=== PATIENT | male | born 1995 | race Caucasian/White ===

== ENCOUNTER 2023-05-20 16:40 | Inpatient (IN) | payer OTHER ==
[~2023-05-20] VITALS: Ht 165.1 cm; Wt 85.9 kg
[2023-05-20 17:30] LABS: HEMATOCRIT 46.4 % (42.0-52.0); HEMOGLOBIN 16.2 g/dl (13.5-17.5); MEAN CORPUSCULAR HEMOGLOBIN 30.2 pg (27.0-33.0); MEAN CORPUSCULAR HGB CONC 34.9 g/dl (32.0-36.5); MEAN CORPUSCULAR VOLUME 86.6 fl (80.0-96.0); PLATELET COUNT, AUTOMATED 319 10^3/uL (150-450); RED BLOOD COUNT 5.36 10^6/uL (4.30-6.10); WHITE BLOOD COUNT 6.1 10^3/uL (4.0-10.0)
[2023-05-20 17:38] LABS: AMPHETAMINES LEVEL URINE NEGATIVE (NEGATIVE); BARBITURATES URINE NEGATIVE (NEGATIVE); BENZODIAZEPINES URINE NEGATIVE (NEGATIVE); CANNABINOIDS URINE NEGATIVE (NEGATIVE); COCAINE METABOLITE URINE NEGATIVE (NEGATIVE); METHADONE URINE NEGATIVE (NEGATIVE); OPIATES URINE NEGATIVE (NEGATIVE); PHENCYCLIDINE URINE NEGATIVE (NEGATIVE)
[2023-05-20 17:40] LABS: ETHYL ALCOHOL (ETHANOL) 0.278 % (0.000-0.010)
[2023-05-20 17:41] LABS: ALBUMIN 4.1 G/DL (3.2-5.2); ALKALINE PHOSPHATASE 80 U/L (46-116); ALT/SGPT 104 U/L (7.0-40); AST/SGOT 57 U/L (<34); BILIRUBIN,DIRECT < 0.1 MG/DL (<0.4); BILIRUBIN,TOTAL 0.2 MG/DL (0.3-1.2); BLOOD UREA NITROGEN 12 MG/DL (9-23); CALCIUM LEVEL 9.1 MG/DL (8.5-10.1); CARBON DIOXIDE LEVEL 26 MMOL/L (20-31); CHLORIDE LEVEL 111 MMOL/L (98-107); GLOMERULAR FILTRATION RATE > 60.0 (>60); GLUCOSE, FASTING 120 MG/DL (60-100); POTASSIUM SERUM 3.9 MMOL/L (3.5-5.1); SALICYLATE LEVEL < 3.0 MG/DL (<30); SODIUM LEVEL 145 MMOL/L (136-145); TOTAL PROTEIN 7.3 G/DL (5.7-8.2)
[2023-05-20 17:43] LABS: THYROID STIMULATING HORMONE 0.696 uIU/ML (0.55-4.78)
[2023-05-20] MEDS: FOLIC ACID 1MG TAB PO SCH (18:49)
[2023-05-20] MEDS: MULTIVITAMINS/MINERALS THERAP 1 TAB PO SCH (18:49)
[2023-05-20] MEDS: THIAMINE 100 MG TAB PO SCH (21:00)
[2023-05-20] MEDS: LORazepam 2 MG TAB PO PRN (22:30)
[2023-05-21] MEDS ORDERED: IBUPROFEN 400MG TAB PO PRN (06:50)
[2023-05-21] MEDS ORDERED: MAALOX 30 ML SUSP *UDC PO PRN (06:50)
[2023-05-21] MEDS ORDERED: MOM 30ML SUSPENSION UDC PO PRN (06:50)
[2023-05-21] MEDS ORDERED: diphenhydrAMINE 25MG CAP PO PRN (06:50)
[2023-05-21] MEDS ORDERED: MED REC IN PROGRESS XX SCH (06:55)
[2023-05-21 08:37] VITALS: BP 130/82; TEMP 99.3; O2SAT 98
[2023-05-21] MEDS: NICOTINE 21MG/24HR 1 EA TRANSDERMAL TD SCH (18:51)
[2023-05-21] MEDS: traZODone 50 MG TAB PO PRN (20:28)
[2023-05-21] MEDS: ACETAMINOPHEN TAB 650MG DOSE (2X325MG) PO PRN (20:29)
[2023-05-22 06:11] VITALS: BP 121/58; TEMP 97.4; O2SAT 98
[2023-05-22] MEDS ORDERED: HOME MED LIST COMPLETE! XX SCH (08:05)
[2023-05-22] MEDS ORDERED: ACET-907 PO (08:05)
[2023-05-22] MEDS ORDERED: NAPR-885 PO (08:05)
[2023-05-22] MEDS ORDERED: CYCL-707 PO (08:05)
[2023-05-22] MEDS ORDERED: TRAZ-252 PO (09:51)
[2023-05-22] MEDS ORDERED: NICO21PAT TD (09:51)
== END 2023-05-22 13:30 | disposition home or self-care (01) | DRG 882 ==
LOC: M ED 16:40 → M ED INP 05-21 06:46 → M PSY 05-21 08:48
PROVIDERS: ADMIT Student in an Organized Health Care Education/Training Program; ATTEND Student in an Organized Health Care Education/Training Program
DX: F43.20 Adjustment disorder, unspecified (principal); R45.851 Suicidal ideations; Z91.148 Patient's other noncompliance with medication regimen for other reason; F17.200 Nicotine dependence, unspecified, uncomplicated

== ENCOUNTER 2023-06-02 18:19 | Emergency (ER) | payer OTHER ==
[~2023-06-02] VITALS: Ht 165.1 cm; Wt 86.3 kg
[~2023-06-02 18:19] MED LIST: ACET-907 PO; CYCL-707 PO; NAPR-885 PO; NICO21PAT TD; TRAZ-252 PO
[2023-06-02] MEDS: diphenhydrAMINE 50MG/ML VIAL IM ONE (18:31)
[2023-06-02] MEDS: HALOPERIDOL 5MG/ML 1ML VIAL IM ONE (18:31)
[2023-06-02] MEDS: LORazepam 2 MG/ML 1ML VIAL IM ONE (18:32)
[2023-06-02 18:45] LABS: HEMATOCRIT 49.4 % (42.0-52.0); HEMOGLOBIN 17.3 g/dl (13.5-17.5); MEAN CORPUSCULAR HEMOGLOBIN 30.3 pg (27.0-33.0); MEAN CORPUSCULAR VOLUME 86.5 fl (80.0-96.0); PLATELET COUNT, AUTOMATED 372 10^3/uL (150-450); RED BLOOD COUNT 5.71 10^6/uL (4.30-6.10); WHITE BLOOD COUNT 9.4 10^3/uL (4.0-10.0)
[2023-06-02] MEDS ORDERED: HOME MED LIST COMPLETE! XX SCH (19:05)
[2023-06-02] MEDS: NS 1,000 ML IV ONE ×2 (19:06→22:19)
[2023-06-02 19:10] LABS: ALBUMIN 4.5 G/DL (3.2-5.2); ALKALINE PHOSPHATASE 88 U/L (46-116); ALT/SGPT 100 U/L (7.0-40); AST/SGOT 56 U/L (<34); BILIRUBIN,DIRECT 0.1 MG/DL (<0.4); BILIRUBIN,TOTAL 0.3 MG/DL (0.3-1.2); BLOOD UREA NITROGEN 11 MG/DL (9-23); CALCIUM LEVEL 9.2 MG/DL (8.5-10.1); CARBON DIOXIDE LEVEL 17 MMOL/L (20-31); CHLORIDE LEVEL 107 MMOL/L (98-107); CREATININE FOR GFR 0.91 MG/DL (0.70-1.30); GLOMERULAR FILTRATION RATE > 60.0 (>60); GLUCOSE, FASTING 134 MG/DL (60-100); POTASSIUM SERUM 3.6 MMOL/L (3.5-5.1); SALICYLATE LEVEL < 3.0 MG/DL (<30); SODIUM LEVEL 145 MMOL/L (136-145); TOTAL PROTEIN 7.9 G/DL (5.7-8.2)
[2023-06-02 19:12] LABS: THYROID STIMULATING HORMONE 0.421 uIU/ML (0.55-4.78)
[2023-06-02 19:19] LABS: CPK CREATINE PHOSPHOKINASE 270 U/L (46-171)
[2023-06-02 19:34] LABS: ETHYL ALCOHOL (ETHANOL) 0.346 % (0.000-0.010)
[2023-06-02 19:56] LABS: AMPHETAMINES LEVEL URINE NEGATIVE (NEGATIVE); BARBITURATES URINE NEGATIVE (NEGATIVE); BENZODIAZEPINES URINE NEGATIVE (NEGATIVE); COCAINE METABOLITE URINE NEGATIVE (NEGATIVE); METHADONE URINE NEGATIVE (NEGATIVE); OPIATES URINE NEGATIVE (NEGATIVE)
[2023-06-02 19:57] LABS: CANNABINOIDS URINE NEGATIVE (NEGATIVE); PHENCYCLIDINE URINE NEGATIVE (NEGATIVE)
[2023-06-03 13:04] VITALS: BP 161/90; TEMP 98.5; O2SAT 98
== END 2023-06-03 13:06 | disposition home or self-care (01) ==
LOC: M ED 18:19
DX: F43.0 Acute stress reaction (principal); F10.129 Alcohol abuse with intoxication, unspecified; R00.0 Tachycardia, unspecified; I45.81 Long QT syndrome; F17.200 Nicotine dependence, unspecified, uncomplicated; Z79.1 Long term (current) use of non-steroidal anti-inflammatories (NSAID); Z79.899 Other long term (current) drug therapy
CPT/HCPCS: 80048; 80076; 80143; 80307; 82077; 82550; 84443; 85027; 87635; 93005; 93041; 94760; 96361; 96372; 99285; J1200; J1630; J2060

== ENCOUNTER 2023-07-20 17:39 | Emergency (ER) | payer OTHER ==
[2023-07-20 18:19] LABS: HEMATOCRIT 46.1 % (42.0-52.0); HEMOGLOBIN 16.4 g/dl (13.5-17.5); MEAN CORPUSCULAR HEMOGLOBIN 30.5 pg (27.0-33.0); MEAN CORPUSCULAR HGB CONC 35.6 g/dl (32.0-36.5); MEAN CORPUSCULAR VOLUME 85.7 fl (80.0-96.0); PLATELET COUNT, AUTOMATED 318 10^3/uL (150-450); RED BLOOD COUNT 5.38 10^6/uL (4.30-6.10); WHITE BLOOD COUNT 6.9 10^3/uL (4.0-10.0)
[2023-07-20 18:46] LABS: AMPHETAMINES LEVEL URINE NEGATIVE (NEGATIVE); BARBITURATES URINE NEGATIVE (NEGATIVE); BENZODIAZEPINES URINE NEGATIVE (NEGATIVE); CANNABINOIDS URINE NEGATIVE (NEGATIVE); METHADONE URINE NEGATIVE (NEGATIVE); OPIATES URINE NEGATIVE (NEGATIVE); PHENCYCLIDINE URINE NEGATIVE (NEGATIVE)
[2023-07-20 18:47] LABS: COCAINE METABOLITE URINE POSITIVE (NEGATIVE)
[2023-07-20] MEDS ORDERED: MED REC IN PROGRESS XX SCH (18:50)
[2023-07-20 18:51] LABS: ETHYL ALCOHOL (ETHANOL) 0.255 % (0.000-0.010)
[2023-07-20 18:53] LABS: ALBUMIN 4.5 G/DL (3.2-5.2); ALKALINE PHOSPHATASE 83 U/L (46-116); ALT/SGPT 82 U/L (7.0-40); AST/SGOT 50 U/L (<34); BILIRUBIN,DIRECT 0.1 MG/DL (<0.4); BILIRUBIN,TOTAL 0.3 MG/DL (0.3-1.2); BLOOD UREA NITROGEN 9 MG/DL (9-23); CALCIUM LEVEL 9.7 MG/DL (8.5-10.1); CARBON DIOXIDE LEVEL 26 MMOL/L (20-31); CHLORIDE LEVEL 108 MMOL/L (98-107); CREATININE FOR GFR 0.76 MG/DL (0.70-1.30); GLOMERULAR FILTRATION RATE > 60.0 (>60); GLUCOSE, FASTING 119 MG/DL (60-100); POTASSIUM SERUM 3.9 MMOL/L (3.5-5.1); SALICYLATE LEVEL < 3.0 MG/DL (<30); SODIUM LEVEL 142 MMOL/L (136-145); TOTAL PROTEIN 7.8 G/DL (5.7-8.2)
[2023-07-20] MEDS ORDERED: LORazepam 2 MG TAB PO PRN (18:55)
[2023-07-20] MEDS: THIAMINE 100 MG TAB PO SCH (21:00)
[2023-07-21 06:52] VITALS: BP 152/87; TEMP 98.1; O2SAT 97
[2023-07-21] MEDS ORDERED: MULTIVITAMINS/MINERALS THERAP 1 TAB PO SCH (09:00)
[2023-07-21] MEDS ORDERED: FOLIC ACID 1MG TAB PO SCH (09:00)
== END 2023-07-21 06:55 | disposition home or self-care (01) ==
LOC: M ED 17:39
DX: F10.10 Alcohol abuse, uncomplicated (principal); F19.10 Other psychoactive substance abuse, uncomplicated; F32.A Depression, unspecified; Z79.1 Long term (current) use of non-steroidal anti-inflammatories (NSAID); Z79.899 Other long term (current) drug therapy